=== PATIENT | female | born 1995 | race African-American/Black ===

== ENCOUNTER 2024-01-14 09:00 | Emergency (ER) | payer MEDICAID ==
[~2024-01-14] VITALS: Ht 162.6 cm; Wt 58.0 kg
[2024-01-14 09:12] VITALS: O2SAT 99
[2024-01-14 10:25] LABS: BASOPHILS % 0.9 % (0.0-2.0); EOSINOPHILS % 0.5 % (0.0-5.0); HEMATOCRIT. 47.5 % (36.0-48.0); HEMOGLOBIN. 15.3 g/dL (12.0-16.0); LYMPHOCYTES % 13.6 % (20.0-50.0); MEAN CORPUSCULAR HEMOGLOBIN 28.2 pg (28.0-32.0); MEAN CORPUSCULAR HGB CONC 32.1 g/dL (31.0-37.0); MEAN CORPUSCULAR VOLUME 87.8 fL (81.0-99.0); MEAN PLATELET VOLUME 8.9 fl (7.4-10.4); MONOCYTES % 8.7 % (2.0-8.0); NEUTROPHILS % 76.3 % (40.0-76.0); PLATELET 264 x1000/uL (130-400); RED BLOOD CELL COUNT 5.41 mill/uL (4.2-5.4); RED CELL DISTRIBUTION WIDTH 15.6 % (11.6-14.6)
[2024-01-14 10:36] LABS: HCG SCREEN NEGATIVE
[2024-01-14] MEDS: SODIUM CHLORIDE 0.9% 1,000 ML IV ONE (10:40)
[2024-01-14 10:41] LABS: ALANINE AMINOTRANSFERASE 28 IU/L (10-49); ALBUMIN 4.6 g/dL (3.2-4.8); ASPARTATE AMINOTRANSFERASE 55 IU/L (<34); BILIRUBIN DIRECT 0.2 mg/dL (<=3.0); BILIRUBIN TOTAL 0.6 mg/dL (0.1-1.0); PROTEIN TOTAL 8.4 g/dL (6.0-8.3)
[2024-01-14 10:58] LABS: PARTIAL THROMBOPLASTIN TIME 26.2 sec (23.4-31.0); PROTHROMBIN TIME 11.4 sec (9.6-11.0)
[2024-01-14 11:00] LABS: CARBON DIOXIDE 23 mEq/L (21-32); CHLORIDE 101 mEq/L (98-107); GLUCOSE 77 mg/dL (70-105); POTASSIUM 3.8 mEq/L (3.5-5.1); SODIUM 135 mEq/L (136-145)
[2024-01-14 11:01] LABS: CALCIUM 9.6 mg/dL (8.7-10.4); CREATININE 0.7 mg/dL (0.6-1.0); ETHANOL BLOOD 15 mg/dL (<10); TROPONIN I HIGH SENSITIVITY < 4 ng/L (3.0-34); UREA NITROGEN BLOOD 11 mg/dL (9-23)
[2024-01-14 11:17] LABS: THYROID STIMULATING HORMONE 1.79 uIU/mL (0.55-4.78)
[2024-01-14 11:18] LABS: T4 FREE 1.29 ng/dL (0.89-1.76)
[2024-01-14 11:57] LABS: PHOSPHORUS 2.3 mg/dL (2.5-4.9)
[2024-01-14] MEDS ORDERED: IOHEXOL-350 100 ML BOTTLE ONE (14:00)
[2024-01-14] MEDS: POTASSIUM-SODIUM PHOSPHATE POWDER PACKET PO ONE (14:02)
[2024-01-14] MEDS: MAGNESIUM OXIDE 400MG TABLET PO SCH (14:02)
[2024-01-14 14:12] VITALS: BP 116/64; PULSE 78; RESP 16; TEMP 37.05852; O2SAT 99
== END 2024-01-14 14:13 | disposition home or self-care (01) ==
LOC: ER 09:00
DX: R07.89 Other chest pain (principal); Z20.822 Contact with and (suspected) exposure to COVID-19
CPT/HCPCS: 80076; 80048; 80320; 84703; 83880; 84439; 83690; 83735; 84100; 84443; 85025; 85379; 85610; 85730; 84484; 87804 ×2; 36415; 71045; 71275; 93005; 96360; 99285; 87426; Q9967; J7030; G0480